=== PATIENT | male | born 1950 | race Caucasian/White ===

== ENCOUNTER 2019-04-20 08:57 | Day surgery (SDC) | payer OTHER ==
[~2019-04-20] VITALS: Ht 162.6 cm; Wt 78.9 kg
[2019-04-20 09:57] VITALS: BP 148/87
[2019-04-20 17:46] VITALS: BP 134/84
== END 2019-04-20 13:00 | disposition home or self-care (01) ==
LOC: GI 08:57 → OR 11:00 → GI 13:00
DX: Z12.11 Encounter for screening for malignant neoplasm of colon (principal); K57.30 Diverticulosis of large intestine without perforation or abscess without bleeding; K64.8 Other hemorrhoids; E11.9 Type 2 diabetes mellitus without complications; C61 Malignant neoplasm of prostate; E78.00 Pure hypercholesterolemia, unspecified; Z98.890 Other specified postprocedural states; Z79.82 Long term (current) use of aspirin; Z79.899 Other long term (current) drug therapy; Z79.84 Long term (current) use of oral hypoglycemic drugs
CPT/HCPCS: G0121; 45378; J1200; J1610; J2250; J2310; J3010; J3490

== ENCOUNTER 2019-08-13 15:30 | Emergency (ER) | payer OTHER ==
[~2019-08-13] VITALS: Ht 165.1 cm; Wt 78.5 kg
[2019-08-13 15:45] VITALS: Ht 165.1 cm; Wt 78.5 kg
[2019-08-13 17:45] LABS: BASOPHIL % 0.1 % (0-2); PLATELET COUNT 189 x10^3mcL (130-400); RED CELL DISTRIBUTION WIDTH 13.6 % (11.5-14.5)
[2019-08-13 17:48] LABS: ALBUMIN 4.1 g/dL (3.4-5.0); BILIRUBIN TOTAL 0.9 mg/dL (0.20-1.00); CALCIUM 8.3 mg/dL (8.5-10.1); CARBON DIOXIDE 24.9 mmol/L (21-32); CREATININE SERUM 1.3 mg/dL (0.7-1.3); TOTAL PROTEIN, SERUM 7.3 g/dL (6.4-8.2)
[2019-08-13 17:54] LABS: POTASSIUM SERUM 2.8 mmol/L (3.5-5.1)
[2019-08-13 20:43] VITALS: BP 142/89
== END 2019-08-13 20:43 | disposition home or self-care (01) ==
LOC: ED 15:30
PROVIDERS: Emergency Medicine
DX: K52.9 Noninfective gastroenteritis and colitis, unspecified (principal); E87.6 Hypokalemia; I10 Essential (primary) hypertension; E11.9 Type 2 diabetes mellitus without complications; E78.00 Pure hypercholesterolemia, unspecified; Z92.3 Personal history of irradiation; Z20.828 Contact with and (suspected) exposure to other viral communicable diseases
CPT/HCPCS: J3480; J7030; U0003-CS